=== PATIENT | male | born 1935 | race Caucasian/White ===

== ENCOUNTER → 2017-05-16 | Outpatient (CLI) | payer OTHER, BC | LOC: HYPER 07:39 | DX: L97.321 Non-pressure chronic ulcer of left ankle limited to breakdown of skin (principal); D64.9 Anemia, unspecified; I73.9 Peripheral vascular disease, unspecified; R60.9 Edema, unspecified; M19.90 Unspecified osteoarthritis, unspecified site; E78.5 Hyperlipidemia, unspecified; E03.9 Hypothyroidism, unspecified; Z85.038 Personal history of other malignant neoplasm of large intestine; Z72.89 Other problems related to lifestyle ==

== ENCOUNTER → 2017-06-08 | Outpatient (CLI) | payer OTHER, BC | LOC: HYPER 06-07 13:48 | DX: T81.89XD Other complications of procedures, not elsewhere classified, subsequent encounter (principal); L97.321 Non-pressure chronic ulcer of left ankle limited to breakdown of skin; I73.9 Peripheral vascular disease, unspecified; M19.90 Unspecified osteoarthritis, unspecified site; E78.5 Hyperlipidemia, unspecified; E03.9 Hypothyroidism, unspecified; Z72.89 Other problems related to lifestyle; Y83.8 Other surgical procedures as the cause of abnormal reaction of the patient, or of later complication, without mention of misadventure at the time of the procedure ==

== ENCOUNTER → 2017-07-13 | Outpatient (CLI) | payer OTHER, BC | LOC: RAD 10:27 | DX: S82.492A Other fracture of shaft of left fibula, initial encounter for closed fracture (principal); L97.828 Non-pressure chronic ulcer of other part of left lower leg with other specified severity; X58.XXXA Exposure to other specified factors, initial encounter; Y93.89 Activity, other specified; Y92.89 Other specified places as the place of occurrence of the external cause; Y99.8 Other external cause status ==

== ENCOUNTER → 2017-09-28 | Outpatient (CLI) | payer OTHER, BC | LOC: HYPER 06:47 | DX: T81.89XD Other complications of procedures, not elsewhere classified, subsequent encounter (principal); L97.322 Non-pressure chronic ulcer of left ankle with fat layer exposed; I73.9 Peripheral vascular disease, unspecified; D64.9 Anemia, unspecified; R60.9 Edema, unspecified; M19.90 Unspecified osteoarthritis, unspecified site; E78.5 Hyperlipidemia, unspecified; E03.9 Hypothyroidism, unspecified; Z85.038 Personal history of other malignant neoplasm of large intestine; Z72.89 Other problems related to lifestyle; Y83.8 Other surgical procedures as the cause of abnormal reaction of the patient, or of later complication, without mention of misadventure at the time of the procedure ==

== ENCOUNTER → 2017-12-29 | Outpatient (CLI) | payer OTHER, BC | LOC: HYPER 06:44 | DX: T81.89XD Other complications of procedures, not elsewhere classified, subsequent encounter (principal); L97.322 Non-pressure chronic ulcer of left ankle with fat layer exposed; I73.9 Peripheral vascular disease, unspecified; D64.9 Anemia, unspecified; R60.9 Edema, unspecified; M19.90 Unspecified osteoarthritis, unspecified site; E78.5 Hyperlipidemia, unspecified; E03.9 Hypothyroidism, unspecified; Z85.038 Personal history of other malignant neoplasm of large intestine; Y83.8 Other surgical procedures as the cause of abnormal reaction of the patient, or of later complication, without mention of misadventure at the time of the procedure ==

== ENCOUNTER → 2018-07-13 | Outpatient (CLI) | payer OTHER, BC | LOC: HYPER 07:02 | DX: T81.89XD Other complications of procedures, not elsewhere classified, subsequent encounter (principal); L97.322 Non-pressure chronic ulcer of left ankle with fat layer exposed; L84 Corns and callosities; E78.5 Hyperlipidemia, unspecified; E03.9 Hypothyroidism, unspecified; D64.9 Anemia, unspecified; I73.9 Peripheral vascular disease, unspecified; R60.9 Edema, unspecified; M19.90 Unspecified osteoarthritis, unspecified site; Z85.038 Personal history of other malignant neoplasm of large intestine; Z98.49 Cataract extraction status, unspecified eye; Y83.8 Other surgical procedures as the cause of abnormal reaction of the patient, or of later complication, without mention of misadventure at the time of the procedure ==

== ENCOUNTER → 2018-07-19 | Outpatient (CLI) | payer OTHER, BC | LOC: HYPER 06:52 | DX: T81.89XD Other complications of procedures, not elsewhere classified, subsequent encounter (principal); L97.322 Non-pressure chronic ulcer of left ankle with fat layer exposed; L84 Corns and callosities; E78.5 Hyperlipidemia, unspecified; E03.9 Hypothyroidism, unspecified; D64.9 Anemia, unspecified; I73.9 Peripheral vascular disease, unspecified; M19.90 Unspecified osteoarthritis, unspecified site; Z85.038 Personal history of other malignant neoplasm of large intestine; Y83.8 Other surgical procedures as the cause of abnormal reaction of the patient, or of later complication, without mention of misadventure at the time of the procedure ==

== ENCOUNTER → 2018-08-16 | Outpatient (CLI) | payer OTHER, BC | LOC: HYPER 07:07 | DX: T81.89XD Other complications of procedures, not elsewhere classified, subsequent encounter (principal); L97.322 Non-pressure chronic ulcer of left ankle with fat layer exposed; L84 Corns and callosities; D64.9 Anemia, unspecified; E78.5 Hyperlipidemia, unspecified; E03.9 Hypothyroidism, unspecified; I73.9 Peripheral vascular disease, unspecified; M19.90 Unspecified osteoarthritis, unspecified site; Z85.038 Personal history of other malignant neoplasm of large intestine; Y83.8 Other surgical procedures as the cause of abnormal reaction of the patient, or of later complication, without mention of misadventure at the time of the procedure ==

== ENCOUNTER → 2018-10-16 | Outpatient (CLI) | payer OTHER, BC | LOC: HYPER 10-04 07:04 | DX: T81.89XD Other complications of procedures, not elsewhere classified, subsequent encounter (principal); L97.322 Non-pressure chronic ulcer of left ankle with fat layer exposed; L84 Corns and callosities; D64.9 Anemia, unspecified; E78.5 Hyperlipidemia, unspecified; E03.9 Hypothyroidism, unspecified; I73.9 Peripheral vascular disease, unspecified; M19.90 Unspecified osteoarthritis, unspecified site; Z85.038 Personal history of other malignant neoplasm of large intestine; Y83.8 Other surgical procedures as the cause of abnormal reaction of the patient, or of later complication, without mention of misadventure at the time of the procedure ==

== ENCOUNTER → 2018-11-13 | Outpatient (CLI) | payer OTHER, BC | LOC: HYPER 06:49 | DX: T81.89XD Other complications of procedures, not elsewhere classified, subsequent encounter (principal); L97.322 Non-pressure chronic ulcer of left ankle with fat layer exposed; L84 Corns and callosities; D64.9 Anemia, unspecified; E78.5 Hyperlipidemia, unspecified; E03.9 Hypothyroidism, unspecified; M86.9 Osteomyelitis, unspecified; I73.9 Peripheral vascular disease, unspecified; M19.90 Unspecified osteoarthritis, unspecified site; F03.90 Unspecified dementia, unspecified severity, without behavioral disturbance, psychotic disturbance, mood disturbance, and anxiety; Z85.038 Personal history of other malignant neoplasm of large intestine; Y83.8 Other surgical procedures as the cause of abnormal reaction of the patient, or of later complication, without mention of misadventure at the time of the procedure ==

== ENCOUNTER → 2018-12-25 | Outpatient (CLI) | payer OTHER, BC | LOC: HYPER 06:51 | DX: T81.89XD Other complications of procedures, not elsewhere classified, subsequent encounter (principal); L97.322 Non-pressure chronic ulcer of left ankle with fat layer exposed; E78.5 Hyperlipidemia, unspecified; E03.9 Hypothyroidism, unspecified; D64.9 Anemia, unspecified; R60.9 Edema, unspecified; I73.9 Peripheral vascular disease, unspecified; M86.9 Osteomyelitis, unspecified; M19.90 Unspecified osteoarthritis, unspecified site; F03.90 Unspecified dementia, unspecified severity, without behavioral disturbance, psychotic disturbance, mood disturbance, and anxiety; Z85.038 Personal history of other malignant neoplasm of large intestine; Y83.8 Other surgical procedures as the cause of abnormal reaction of the patient, or of later complication, without mention of misadventure at the time of the procedure ==

== ENCOUNTER → 2019-01-01 | Outpatient (CLI) | payer OTHER, BC | LOC: MRI 11:59 | DX: S82.832K Other fracture of upper and lower end of left fibula, subsequent encounter for closed fracture with nonunion (principal); X58.XXXD Exposure to other specified factors, subsequent encounter ==

== ENCOUNTER → 2019-02-05 | Outpatient (CLI) | payer OTHER, BC | LOC: HYPER 07:01 | DX: T81.89XD Other complications of procedures, not elsewhere classified, subsequent encounter (principal); L97.322 Non-pressure chronic ulcer of left ankle with fat layer exposed; I73.9 Peripheral vascular disease, unspecified; R60.9 Edema, unspecified; M86.9 Osteomyelitis, unspecified; L84 Corns and callosities; M19.90 Unspecified osteoarthritis, unspecified site; E78.5 Hyperlipidemia, unspecified; D64.9 Anemia, unspecified; F03.90 Unspecified dementia, unspecified severity, without behavioral disturbance, psychotic disturbance, mood disturbance, and anxiety; Z85.038 Personal history of other malignant neoplasm of large intestine; Y83.8 Other surgical procedures as the cause of abnormal reaction of the patient, or of later complication, without mention of misadventure at the time of the procedure ==

== ENCOUNTER → 2019-03-28 | Outpatient (CLI) | payer OTHER, BC | LOC: HYPER 06:31 | DX: T81.89XD Other complications of procedures, not elsewhere classified, subsequent encounter (principal); L97.322 Non-pressure chronic ulcer of left ankle with fat layer exposed; I73.9 Peripheral vascular disease, unspecified; L84 Corns and callosities; M19.90 Unspecified osteoarthritis, unspecified site; E78.5 Hyperlipidemia, unspecified; E03.9 Hypothyroidism, unspecified; D64.9 Anemia, unspecified; M86.9 Osteomyelitis, unspecified; R60.9 Edema, unspecified; F03.90 Unspecified dementia, unspecified severity, without behavioral disturbance, psychotic disturbance, mood disturbance, and anxiety; Z85.038 Personal history of other malignant neoplasm of large intestine; Y83.8 Other surgical procedures as the cause of abnormal reaction of the patient, or of later complication, without mention of misadventure at the time of the procedure ==

== ENCOUNTER → 2019-04-25 | Outpatient (CLI) | payer OTHER, BC | LOC: HYPER 06:39 | DX: T81.89XD Other complications of procedures, not elsewhere classified, subsequent encounter (principal); L97.322 Non-pressure chronic ulcer of left ankle with fat layer exposed; I73.9 Peripheral vascular disease, unspecified; D64.9 Anemia, unspecified; R60.9 Edema, unspecified; E78.5 Hyperlipidemia, unspecified; E03.9 Hypothyroidism, unspecified; M86.9 Osteomyelitis, unspecified; M19.90 Unspecified osteoarthritis, unspecified site; F03.90 Unspecified dementia, unspecified severity, without behavioral disturbance, psychotic disturbance, mood disturbance, and anxiety; Z85.038 Personal history of other malignant neoplasm of large intestine; Y83.8 Other surgical procedures as the cause of abnormal reaction of the patient, or of later complication, without mention of misadventure at the time of the procedure ==

== ENCOUNTER → 2019-05-10 | Outpatient (CLI) | payer OTHER, BC | LOC: HYPER 07:27 | DX: T81.89XD Other complications of procedures, not elsewhere classified, subsequent encounter (principal); L97.322 Non-pressure chronic ulcer of left ankle with fat layer exposed; I73.9 Peripheral vascular disease, unspecified; D64.9 Anemia, unspecified; M86.9 Osteomyelitis, unspecified; L84 Corns and callosities; M19.90 Unspecified osteoarthritis, unspecified site; E78.5 Hyperlipidemia, unspecified; R60.9 Edema, unspecified; F03.90 Unspecified dementia, unspecified severity, without behavioral disturbance, psychotic disturbance, mood disturbance, and anxiety; Z85.038 Personal history of other malignant neoplasm of large intestine; Y83.8 Other surgical procedures as the cause of abnormal reaction of the patient, or of later complication, without mention of misadventure at the time of the procedure ==

== ENCOUNTER → 2019-05-31 | Outpatient (CLI) | payer OTHER, BC | LOC: HYPER 07:30 | DX: T81.89XD Other complications of procedures, not elsewhere classified, subsequent encounter (principal); L97.322 Non-pressure chronic ulcer of left ankle with fat layer exposed; I73.9 Peripheral vascular disease, unspecified; L84 Corns and callosities; M19.90 Unspecified osteoarthritis, unspecified site; E78.5 Hyperlipidemia, unspecified; E03.9 Hypothyroidism, unspecified; M86.9 Osteomyelitis, unspecified; D64.9 Anemia, unspecified; R60.9 Edema, unspecified; F03.90 Unspecified dementia, unspecified severity, without behavioral disturbance, psychotic disturbance, mood disturbance, and anxiety; Z85.038 Personal history of other malignant neoplasm of large intestine; Y83.8 Other surgical procedures as the cause of abnormal reaction of the patient, or of later complication, without mention of misadventure at the time of the procedure ==

== ENCOUNTER → 2019-06-14 | Outpatient (CLI) | payer OTHER, BC | LOC: HYPER 12:08 | DX: T81.89XD Other complications of procedures, not elsewhere classified, subsequent encounter (principal); L97.322 Non-pressure chronic ulcer of left ankle with fat layer exposed; I73.9 Peripheral vascular disease, unspecified; M86.9 Osteomyelitis, unspecified; L84 Corns and callosities; E78.5 Hyperlipidemia, unspecified; E03.9 Hypothyroidism, unspecified; M19.90 Unspecified osteoarthritis, unspecified site; D64.9 Anemia, unspecified; R60.9 Edema, unspecified; F03.90 Unspecified dementia, unspecified severity, without behavioral disturbance, psychotic disturbance, mood disturbance, and anxiety; Z85.038 Personal history of other malignant neoplasm of large intestine; Y83.8 Other surgical procedures as the cause of abnormal reaction of the patient, or of later complication, without mention of misadventure at the time of the procedure ==

== ENCOUNTER → 2019-06-28 | Outpatient (CLI) | payer OTHER, BC | LOC: HYPER 09:41 | DX: T81.89XD Other complications of procedures, not elsewhere classified, subsequent encounter (principal); L97.322 Non-pressure chronic ulcer of left ankle with fat layer exposed; I73.9 Peripheral vascular disease, unspecified; M86.9 Osteomyelitis, unspecified; L84 Corns and callosities; E78.5 Hyperlipidemia, unspecified; M19.90 Unspecified osteoarthritis, unspecified site; D64.9 Anemia, unspecified; R60.9 Edema, unspecified; E03.9 Hypothyroidism, unspecified; F03.90 Unspecified dementia, unspecified severity, without behavioral disturbance, psychotic disturbance, mood disturbance, and anxiety; Z85.038 Personal history of other malignant neoplasm of large intestine; Y83.8 Other surgical procedures as the cause of abnormal reaction of the patient, or of later complication, without mention of misadventure at the time of the procedure ==

== ENCOUNTER → 2019-07-23 | Outpatient (CLI) | payer OTHER, BC | LOC: HYPER 13:45 | DX: T81.89XD Other complications of procedures, not elsewhere classified, subsequent encounter (principal); L97.322 Non-pressure chronic ulcer of left ankle with fat layer exposed; I73.9 Peripheral vascular disease, unspecified; M86.9 Osteomyelitis, unspecified; L84 Corns and callosities; E78.5 Hyperlipidemia, unspecified; E03.9 Hypothyroidism, unspecified; M19.90 Unspecified osteoarthritis, unspecified site; D64.9 Anemia, unspecified; R60.9 Edema, unspecified; F03.90 Unspecified dementia, unspecified severity, without behavioral disturbance, psychotic disturbance, mood disturbance, and anxiety; Z85.038 Personal history of other malignant neoplasm of large intestine; Y83.8 Other surgical procedures as the cause of abnormal reaction of the patient, or of later complication, without mention of misadventure at the time of the procedure ==

== ENCOUNTER → 2019-09-17 | Outpatient (CLI) | payer OTHER, BC | LOC: HYPER 11:45 | DX: T81.89XD Other complications of procedures, not elsewhere classified, subsequent encounter (principal); L97.322 Non-pressure chronic ulcer of left ankle with fat layer exposed; I73.9 Peripheral vascular disease, unspecified; E78.5 Hyperlipidemia, unspecified; E03.9 Hypothyroidism, unspecified; R60.9 Edema, unspecified; H91.90 Unspecified hearing loss, unspecified ear; R41.3 Other amnesia; M86.9 Osteomyelitis, unspecified; M19.90 Unspecified osteoarthritis, unspecified site; D64.9 Anemia, unspecified; F03.90 Unspecified dementia, unspecified severity, without behavioral disturbance, psychotic disturbance, mood disturbance, and anxiety; Z85.038 Personal history of other malignant neoplasm of large intestine; Y83.8 Other surgical procedures as the cause of abnormal reaction of the patient, or of later complication, without mention of misadventure at the time of the procedure ==

== ENCOUNTER → 2019-10-01 | Outpatient (CLI) | payer OTHER, BC | LOC: HYPER 13:45 | DX: T81.89XD Other complications of procedures, not elsewhere classified, subsequent encounter (principal); L97.322 Non-pressure chronic ulcer of left ankle with fat layer exposed; L84 Corns and callosities; M86.9 Osteomyelitis, unspecified; R60.9 Edema, unspecified; D64.9 Anemia, unspecified; F03.90 Unspecified dementia, unspecified severity, without behavioral disturbance, psychotic disturbance, mood disturbance, and anxiety; H26.9 Unspecified cataract; M19.90 Unspecified osteoarthritis, unspecified site; I73.89 Other specified peripheral vascular diseases; E78.5 Hyperlipidemia, unspecified; E03.9 Hypothyroidism, unspecified; Z85.038 Personal history of other malignant neoplasm of large intestine; Y83.8 Other surgical procedures as the cause of abnormal reaction of the patient, or of later complication, without mention of misadventure at the time of the procedure ==

== ENCOUNTER → 2019-10-15 | Outpatient (CLI) | payer OTHER, BC | LOC: HYPER 11:41 | DX: T81.89XD Other complications of procedures, not elsewhere classified, subsequent encounter (principal); L97.322 Non-pressure chronic ulcer of left ankle with fat layer exposed; L84 Corns and callosities; E78.5 Hyperlipidemia, unspecified; E03.9 Hypothyroidism, unspecified; D64.9 Anemia, unspecified; I73.9 Peripheral vascular disease, unspecified; R60.9 Edema, unspecified; M86.9 Osteomyelitis, unspecified; M19.90 Unspecified osteoarthritis, unspecified site; F03.90 Unspecified dementia, unspecified severity, without behavioral disturbance, psychotic disturbance, mood disturbance, and anxiety; Z85.038 Personal history of other malignant neoplasm of large intestine; Y83.8 Other surgical procedures as the cause of abnormal reaction of the patient, or of later complication, without mention of misadventure at the time of the procedure ==

== ENCOUNTER → 2019-10-29 | Outpatient (CLI) | payer OTHER, BC | LOC: HYPER 11:46 | DX: T81.89XD Other complications of procedures, not elsewhere classified, subsequent encounter (principal); L97.322 Non-pressure chronic ulcer of left ankle with fat layer exposed; L89.892 Pressure ulcer of other site, stage 2; L84 Corns and callosities; I73.9 Peripheral vascular disease, unspecified; M86.9 Osteomyelitis, unspecified; R60.9 Edema, unspecified; D64.9 Anemia, unspecified; M19.90 Unspecified osteoarthritis, unspecified site; E78.5 Hyperlipidemia, unspecified; H26.9 Unspecified cataract; F03.90 Unspecified dementia, unspecified severity, without behavioral disturbance, psychotic disturbance, mood disturbance, and anxiety; Z85.038 Personal history of other malignant neoplasm of large intestine; E03.9 Hypothyroidism, unspecified; Y83.8 Other surgical procedures as the cause of abnormal reaction of the patient, or of later complication, without mention of misadventure at the time of the procedure ==

== ENCOUNTER → 2019-11-12 | Outpatient (CLI) | payer OTHER, BC | LOC: HYPER 11:13 | DX: T81.89XD Other complications of procedures, not elsewhere classified, subsequent encounter (principal); L97.322 Non-pressure chronic ulcer of left ankle with fat layer exposed; L84 Corns and callosities; I73.89 Other specified peripheral vascular diseases; R60.9 Edema, unspecified; M86.9 Osteomyelitis, unspecified; D64.9 Anemia, unspecified; H26.9 Unspecified cataract; M19.90 Unspecified osteoarthritis, unspecified site; E78.5 Hyperlipidemia, unspecified; E03.9 Hypothyroidism, unspecified; F03.90 Unspecified dementia, unspecified severity, without behavioral disturbance, psychotic disturbance, mood disturbance, and anxiety; Z85.038 Personal history of other malignant neoplasm of large intestine; Y83.8 Other surgical procedures as the cause of abnormal reaction of the patient, or of later complication, without mention of misadventure at the time of the procedure ==

== ENCOUNTER → 2019-11-19 | Outpatient (CLI) | payer OTHER, BC | LOC: HYPER 12:58 | DX: T81.89XD Other complications of procedures, not elsewhere classified, subsequent encounter (principal); L97.322 Non-pressure chronic ulcer of left ankle with fat layer exposed; I73.89 Other specified peripheral vascular diseases; M86.9 Osteomyelitis, unspecified; L84 Corns and callosities; R60.9 Edema, unspecified; E78.5 Hyperlipidemia, unspecified; E03.9 Hypothyroidism, unspecified; D64.9 Anemia, unspecified; H26.9 Unspecified cataract; M19.90 Unspecified osteoarthritis, unspecified site; F03.90 Unspecified dementia, unspecified severity, without behavioral disturbance, psychotic disturbance, mood disturbance, and anxiety; Z85.038 Personal history of other malignant neoplasm of large intestine; Y83.8 Other surgical procedures as the cause of abnormal reaction of the patient, or of later complication, without mention of misadventure at the time of the procedure ==

== ENCOUNTER → 2020-06-19 | Outpatient (CLI) | payer OTHER, BC | LOC: HYPER 14:17 | PROVIDERS: ATTEND Emergency Medicine | DX: T81.89XD Other complications of procedures, not elsewhere classified, subsequent encounter (principal); L97.322 Non-pressure chronic ulcer of left ankle with fat layer exposed; S81.812A Laceration without foreign body, left lower leg, initial encounter; I89.0 Lymphedema, not elsewhere classified; R60.9 Edema, unspecified; M86.9 Osteomyelitis, unspecified; D64.9 Anemia, unspecified; L84 Corns and callosities; H26.9 Unspecified cataract; M19.90 Unspecified osteoarthritis, unspecified site; I73.89 Other specified peripheral vascular diseases; E78.5 Hyperlipidemia, unspecified; E03.9 Hypothyroidism, unspecified; F03.90 Unspecified dementia, unspecified severity, without behavioral disturbance, psychotic disturbance, mood disturbance, and anxiety; Z85.038 Personal history of other malignant neoplasm of large intestine; X58.XXXA Exposure to other specified factors, initial encounter; Y83.8 Other surgical procedures as the cause of abnormal reaction of the patient, or of later complication, without mention of misadventure at the time of the procedure; Y93.89 Activity, other specified; Y92.89 Other specified places as the place of occurrence of the external cause; Y99.8 Other external cause status ==

== ENCOUNTER → 2020-06-26 | Outpatient (CLI) | payer OTHER, BC | LOC: HYPER 14:02 | PROVIDERS: ATTEND Emergency Medicine | DX: T81.89XD Other complications of procedures, not elsewhere classified, subsequent encounter (principal); L97.322 Non-pressure chronic ulcer of left ankle with fat layer exposed; S81.812D Laceration without foreign body, left lower leg, subsequent encounter; L84 Corns and callosities; R60.9 Edema, unspecified; M86.9 Osteomyelitis, unspecified; D64.9 Anemia, unspecified; M19.90 Unspecified osteoarthritis, unspecified site; I73.89 Other specified peripheral vascular diseases; E78.5 Hyperlipidemia, unspecified; E03.9 Hypothyroidism, unspecified; N40.0 Benign prostatic hyperplasia without lower urinary tract symptoms; F03.90 Unspecified dementia, unspecified severity, without behavioral disturbance, psychotic disturbance, mood disturbance, and anxiety; Z85.038 Personal history of other malignant neoplasm of large intestine; Z98.49 Cataract extraction status, unspecified eye; Z72.89 Other problems related to lifestyle; X58.XXXD Exposure to other specified factors, subsequent encounter; Y83.8 Other surgical procedures as the cause of abnormal reaction of the patient, or of later complication, without mention of misadventure at the time of the procedure ==

== ENCOUNTER → 2020-07-17 | Outpatient (CLI) | payer OTHER, BC | LOC: HYPER 14:10 | PROVIDERS: ATTEND Emergency Medicine | DX: T81.89XD Other complications of procedures, not elsewhere classified, subsequent encounter (principal); L97.322 Non-pressure chronic ulcer of left ankle with fat layer exposed; S81.812D Laceration without foreign body, left lower leg, subsequent encounter; R60.9 Edema, unspecified; M86.9 Osteomyelitis, unspecified; L84 Corns and callosities; D64.9 Anemia, unspecified; H26.9 Unspecified cataract; M19.90 Unspecified osteoarthritis, unspecified site; I73.89 Other specified peripheral vascular diseases; E78.5 Hyperlipidemia, unspecified; E03.9 Hypothyroidism, unspecified; N40.0 Benign prostatic hyperplasia without lower urinary tract symptoms; F03.90 Unspecified dementia, unspecified severity, without behavioral disturbance, psychotic disturbance, mood disturbance, and anxiety; Z85.038 Personal history of other malignant neoplasm of large intestine; X58.XXXD Exposure to other specified factors, subsequent encounter; Y83.8 Other surgical procedures as the cause of abnormal reaction of the patient, or of later complication, without mention of misadventure at the time of the procedure ==

== ENCOUNTER → 2020-09-11 | Outpatient (CLI) | payer OTHER, BC | LOC: HYPER 14:07 | PROVIDERS: ATTEND Emergency Medicine | DX: T81.89XD Other complications of procedures, not elsewhere classified, subsequent encounter (principal); L97.322 Non-pressure chronic ulcer of left ankle with fat layer exposed; S81.812D Laceration without foreign body, left lower leg, subsequent encounter; I73.9 Peripheral vascular disease, unspecified; R60.9 Edema, unspecified; M86.9 Osteomyelitis, unspecified; D64.9 Anemia, unspecified; L84 Corns and callosities; F03.90 Unspecified dementia, unspecified severity, without behavioral disturbance, psychotic disturbance, mood disturbance, and anxiety; Y36.2 War operations involving other explosions and fragments; Y83.8 Other surgical procedures as the cause of abnormal reaction of the patient, or of later complication, without mention of misadventure at the time of the procedure ==

== ENCOUNTER → 2020-11-27 | Outpatient (CLI) | payer OTHER, BC | LOC: HYPER 09:01 | PROVIDERS: ATTEND Emergency Medicine Emergency Medical Services | DX: T81.89XD Other complications of procedures, not elsewhere classified, subsequent encounter (principal); L97.322 Non-pressure chronic ulcer of left ankle with fat layer exposed; S81.812D Laceration without foreign body, left lower leg, subsequent encounter; L84 Corns and callosities; R60.9 Edema, unspecified; D64.9 Anemia, unspecified; E78.5 Hyperlipidemia, unspecified; E03.9 Hypothyroidism, unspecified; H26.9 Unspecified cataract; I73.9 Peripheral vascular disease, unspecified; M19.90 Unspecified osteoarthritis, unspecified site; M86.9 Osteomyelitis, unspecified; F03.90 Unspecified dementia, unspecified severity, without behavioral disturbance, psychotic disturbance, mood disturbance, and anxiety; Z85.038 Personal history of other malignant neoplasm of large intestine; Y36.2 War operations involving other explosions and fragments; Y83.8 Other surgical procedures as the cause of abnormal reaction of the patient, or of later complication, without mention of misadventure at the time of the procedure ==

== ENCOUNTER → 2021-02-05 | Outpatient (CLI) | payer OTHER, BC | LOC: HYPER 07:57 | PROVIDERS: ATTEND Emergency Medicine | DX: T81.89XD Other complications of procedures, not elsewhere classified, subsequent encounter (principal); L97.322 Non-pressure chronic ulcer of left ankle with fat layer exposed; S81.812D Laceration without foreign body, left lower leg, subsequent encounter; R60.9 Edema, unspecified; M86.9 Osteomyelitis, unspecified; L84 Corns and callosities; D64.9 Anemia, unspecified; H26.9 Unspecified cataract; M19.90 Unspecified osteoarthritis, unspecified site; I73.89 Other specified peripheral vascular diseases; E78.5 Hyperlipidemia, unspecified; E03.9 Hypothyroidism, unspecified; F03.90 Unspecified dementia, unspecified severity, without behavioral disturbance, psychotic disturbance, mood disturbance, and anxiety; Z85.038 Personal history of other malignant neoplasm of large intestine; Z79.899 Other long term (current) drug therapy; Y83.8 Other surgical procedures as the cause of abnormal reaction of the patient, or of later complication, without mention of misadventure at the time of the procedure; X58.XXXD Exposure to other specified factors, subsequent encounter ==

== ENCOUNTER → 2021-04-09 | Outpatient (CLI) | payer OTHER, BC | LOC: HYPER 08:01 | PROVIDERS: ATTEND Emergency Medicine | DX: T81.89XD Other complications of procedures, not elsewhere classified, subsequent encounter (principal); L97.322 Non-pressure chronic ulcer of left ankle with fat layer exposed; S81.812D Laceration without foreign body, left lower leg, subsequent encounter; R60.9 Edema, unspecified; M86.9 Osteomyelitis, unspecified; L84 Corns and callosities; D64.9 Anemia, unspecified; H26.9 Unspecified cataract; M19.90 Unspecified osteoarthritis, unspecified site; I73.89 Other specified peripheral vascular diseases; E78.5 Hyperlipidemia, unspecified; E03.9 Hypothyroidism, unspecified; F03.90 Unspecified dementia, unspecified severity, without behavioral disturbance, psychotic disturbance, mood disturbance, and anxiety; Z85.038 Personal history of other malignant neoplasm of large intestine; Z98.890 Other specified postprocedural states; Z79.899 Other long term (current) drug therapy; Y83.8 Other surgical procedures as the cause of abnormal reaction of the patient, or of later complication, without mention of misadventure at the time of the procedure ==

== ENCOUNTER → 2021-07-02 | Outpatient (CLI) | payer OTHER, BC | LOC: HYPER 09:31 | PROVIDERS: ATTEND Emergency Medicine | DX: T81.89XD Other complications of procedures, not elsewhere classified, subsequent encounter (principal); S81.812D Laceration without foreign body, left lower leg, subsequent encounter; R60.9 Edema, unspecified; M86.9 Osteomyelitis, unspecified; L84 Corns and callosities; D64.9 Anemia, unspecified; H26.9 Unspecified cataract; M19.90 Unspecified osteoarthritis, unspecified site; I73.89 Other specified peripheral vascular diseases; E78.5 Hyperlipidemia, unspecified; E03.9 Hypothyroidism, unspecified; N40.0 Benign prostatic hyperplasia without lower urinary tract symptoms; F03.90 Unspecified dementia, unspecified severity, without behavioral disturbance, psychotic disturbance, mood disturbance, and anxiety; Z85.038 Personal history of other malignant neoplasm of large intestine; Z79.899 Other long term (current) drug therapy; X58.XXXD Exposure to other specified factors, subsequent encounter; Y83.8 Other surgical procedures as the cause of abnormal reaction of the patient, or of later complication, without mention of misadventure at the time of the procedure ==

== ENCOUNTER → 2021-10-15 | Outpatient (CLI) | payer OTHER, BC | LOC: HYPER 09:21 | PROVIDERS: ATTEND Emergency Medicine | DX: T81.89XD Other complications of procedures, not elsewhere classified, subsequent encounter (principal); S81.812D Laceration without foreign body, left lower leg, subsequent encounter; L97.322 Non-pressure chronic ulcer of left ankle with fat layer exposed; R60.9 Edema, unspecified; M86.9 Osteomyelitis, unspecified; L84 Corns and callosities; D64.9 Anemia, unspecified; H26.9 Unspecified cataract; M19.90 Unspecified osteoarthritis, unspecified site; I73.89 Other specified peripheral vascular diseases; E78.5 Hyperlipidemia, unspecified; E03.9 Hypothyroidism, unspecified; N40.0 Benign prostatic hyperplasia without lower urinary tract symptoms; F03.90 Unspecified dementia, unspecified severity, without behavioral disturbance, psychotic disturbance, mood disturbance, and anxiety; Z85.038 Personal history of other malignant neoplasm of large intestine; X58.XXXD Exposure to other specified factors, subsequent encounter; Y83.8 Other surgical procedures as the cause of abnormal reaction of the patient, or of later complication, without mention of misadventure at the time of the procedure ==